=== PATIENT | male | born 1975 | race Caucasian/White ===

== ENCOUNTER 2018-03-17 21:09 | Emergency (ER) | payer OTHER ==
[~2018-03-17] VITALS: Ht 175.3 cm; Wt 95.3 kg
[~2018-03-17 21:09] MED LIST: NAPROSYN; NEXIUM40 MG PO; NOHOMEMEDICATIONS; NORCO 5-325 TA1 EACH PO; PRAVACHOL; PREDNISONE 20 M20 M1 PO; PRILOSEC 20 MG20 MG; TRIANEX17 GM TP
[2018-03-17] MEDS ORDERED: ACYCLOVIR 400400 MG PO (21:58)
[2018-03-17] MEDS ORDERED: ACYCLOVIR 800800 MG PO (22:02)
[2018-03-17 22:13] VITALS: BP 135/85
== END 2018-03-17 22:14 | disposition home or self-care (01) ==
LOC: M.ERS 21:09
DX: B02.9 Zoster without complications (principal); K21.9 Gastro-esophageal reflux disease without esophagitis; E78.00 Pure hypercholesterolemia, unspecified; F32.9 Major depressive disorder, single episode, unspecified